=== PATIENT | female | born 2000 | race Caucasian/White ===

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

== ENCOUNTER 2020-02-21 17:31 | Emergency (ER) | payer MEDICAID, SELFPAY ==
[2020-02-21 17:43] VITALS: BP 114/76; PULSE 74; RESP 20; TEMP 36.8; O2SAT 99; BMI 29.2
--- NOTE | 2020-02-21 17:51 | HMH.EDUTC ---
[facility] [place] Dis[place] Clinical Impression: Otitis media Qualifiers: Otitis media type: suppurative Chronicity: acute Laterality: right Recurrence: non-recurrent Spontaneous tympanic membrane rupture: without spontaneous rupture Qualified Code(s): H66.001 - Acute suppurative otitis media without spontaneous rupture of ear drum, right ear Disposition: Home, Self-Care Condition on Discharge: Good Instructions: Middle Ear Infection Additional Instructions: Start antibiotic as soon as possible and be sure to take as ordered for full length of time even though he should start feeling better in 24-48 hours. Tylenol or Motrin as needed for pain or fever Encourage fluids, water, Gatorade, Powerade, Pedialyte if /toddler/child Warm compresses often helps when placed over ear Return immediately for new or worsening symptoms no noticeable improvement in 48-72 hours and in 10-14 days to ensure the ears are return to baseline. Follow-up with primary care Prescriptions: Amoxicillin [Amoxicillin 500mg Cap] 500 mg PO BID 10 Days #20 cap Prescription Printed Referrals: Astrid Munoz [Primary Care Provider] - Time of Disposition: 17:57 Medical Decision Making - Cecil Inquiry Pt receiving controlled substance: No Vital Signs: 02/21/20 17:43 Temperature 98.2 F Temperature Source Oral Pulse Rate [Left Brachial] 74 Respiratory Rate 20 Blood Pressure [Left Arm] 114/76 Blood Pressure Mean [Left Arm] 88 Blood Pressure Source [Left Arm] Automatic Cuff Blood Pressure Position [Left Arm] Sitting 02 Sat by Pulse Oximetry 99 Oxygen Delivery Method Room Air [facility] [place] HPI - General Chief complaint: Ear Stated complaint: R ear stopped up/fluid Time Seen by Provider: 02/21/20 17:52 Mode of Arrival: Ambulatory Source of Information: Patient Limitations: No Limitations Description of Symptoms (Recalled from Triage Doc. by RN): PATIENT C/O PAIN AND DECREASED HEARING TO RIGHT EAR X 1 WEEK HEENT Symptoms (Recalled from RN notes): Yes Resp Symptoms (Recalled from RN notes): No Skin Symptoms (Recalled from RN notes): No MS Symptoms (Recalled from RN notes): No Functional Status (Recalled from RN notes): WNL - History of Present Illness Provider Complaint: 20 yr old female presents for rt ear pain for 1 week - Related Data Home Medications Medication Instructions Recorded Confirmed Sulfamethoxazole/Trimethoprim 1 each PO BID 03/24/19 03/24/19 [Bactrim DS tablet] Previous Rx's Medication Instructions Recorded Ciprofloxacin HCl [Ciprofloxacin 500 mg PO BID #14 tab 03/24/19 500mg Tab] Azithromycin [Z-Qamar 250mg Tab*] 250 mg PO UD DOSE PK #6 tab 07/02/19 Brompheniramine/Pseudoephed/Dm 5 - 10 ml PO Q46H PRN #150 ml 07/02/19 [Bromfed Dm Cough Syrup] Fluticasone Propionate [Flonase 1 - 2 spr NS DAILY #1 bottle 07/02/19 50mcg nasal spray 16gm] methylPREDNISolone [Medrol 4mg 4 mg PO DIRECTED #21 tab 07/02/19 tab] Amoxicillin [Amoxicillin 500mg 500 mg PO BID 10 Days #20 cap 02/21/20 Cap] Allergies Allergy/AdvReac Type Severity Reaction Status Date / Time No Known Allergies Allergy Verified 09/23/17 19:50 - Worker's Comp Is this a Worker's Comp case?: No [facility] History - Hepatitis A Screen Drug use history?: No High risk sexual behaviors?: No History of sexually transmitted infection?: No Currently employed?: No Childcare worker?: No Do you have indoor plumbing?: Yes Do you have electricity?: Yes Attestation statement:: This patient has been screened for Hepatitis A risk factors. I have reviewed the patient's past medical history: Yes Medical History: Denies:: Cancer, Diabetes Mellitus Type 1, Diabetes Mellitus Type 2, MRSA Other Surgeries: Yes: No Previous Surgery Amputation: No Fractures: No - Social History Smoking Status: Never smoker Alcohol Intake: never Occupational Status: other Housing: house ROS Obtained: Yes Systems reviewed as appropriate & no additional complaint
[2020-02-21 17:59] VITALS: BP 114/76; PULSE 74; RESP 20; TEMP 36.8; O2SAT 99
== END 2020-02-21 18:00 | disposition home or self-care (01) ==
PROVIDERS: Emergency Provider Nurse Practitioner Family; PCP Family Medicine
DX: H66.001 Acute suppurative otitis media without spontaneous rupture of ear drum, right ear (principal)
CPT/HCPCS: 99201

== ENCOUNTER 2020-04-26 12:19 | Emergency (ER) | payer MEDICAID, SELFPAY ==
[2020-04-26 12:33] VITALS: BP 110/71; PULSE 70; RESP 19; TEMP 36.6; O2SAT 98; BMI 25.7
--- NOTE | 2020-04-26 12:59 | HMH.EDUTC ---
[facility] [place] Impression: Sinusitis Qualifiers: Sinusitis location: unspecified location Chronicity: acute Recurrence: non-recurrent Qualified Code(s): J01.90 - Acute sinusitis, unspecified Disposition: Home, Self-Care Condition on Discharge: Good Instructions: Sinusitis, DI for Sinusitis Additional Instructions: Drink plenty of fluids. Take tylenol or ibuprofen for pain or fever. Take the medications as directed. Follow up with your regular doctor. GO TO THE ER FOR ANY WORSENING SYMPTOMS Prescriptions: Brompheniramine/Pseudoephed/Dm [Bromfed Dm Cough Syrup] 5 ml PO Q6HP PRN #240 syrup PRN Reason: Cough Transmission Status: Pending to [facility] predniSONE [Deltasone 10mg tablet] 10 mg PO BID 3 Days #6 tab Transmission Status: Pending to [facility] Azithromycin [Z-Qamar 250mg Tab*] 250 mg PO UD DOSE PK #6 tab Transmission Status: Pending to [facility] Referrals: Zneaida Kearns PA [Primary Care Provider] - Forms: Work/School Release Time of Disposition: 13:09 Medical Decision Making - Medical Records Medical records reviewed: No: I reviewed the patient's medical records. - Cecil Inquiry Pt receiving controlled substance: No Vital Signs: 04/26/20 12:33 Temperature 97.8 F Temperature Source Oral Pulse Rate [Right Brachial] 70 Respiratory Rate 19 Blood Pressure [Right Arm] 110/71 Blood Pressure Mean [Right Arm] 84 Blood Pressure Source [Right Arm] Automatic Cuff Blood Pressure Position [Right Arm] Sitting 02 Sat by Pulse Oximetry 98 Oxygen Delivery Method Room Air [facility] [place] - General Stated complaint: congestion Time Seen by Provider: 04/26/20 13:00 Mode of Arrival: Ambulatory Source of Information: Patient Limitations: No Limitations Description of Symptoms (Recalled from Triage Doc. by RN): PATIENT C/O SINUS AND ALLERGY PROBLEMS X 2 WEEKS HEENT Symptoms (Recalled from RN notes): Yes Resp Symptoms (Recalled from RN notes): No Skin Symptoms (Recalled from RN notes): No MS Symptoms (Recalled from RN notes): No Functional Status (Recalled from RN notes): WNL - History of Present Illness Provider Complaint: She c/o sinus congestion, sinus pressure, mild sore throat and an cough thats worse at night for the past 2 weeks. She denies any worries about covid exposure even though she works at [employer]. She refuses a covid test. - Related Data Previous Rx's Medication Instructions Recorded Azithromycin [Z-Qamar 250mg Tab*] 250 mg PO UD DOSE PK #6 tab 04/26/20 Brompheniramine/Pseudoephed/Dm 5 ml PO Q6HP PRN #240 syrup 04/26/20 [Bromfed Dm Cough Syrup] predniSONE [Deltasone 10mg tablet] 10 mg PO BID 3 Days #6 tab 04/26/20 Allergies Allergy/AdvReac Type Severity Reaction Status Date / Time No Known Allergies Allergy Verified 09/23/17 19:50 - Worker's Comp Is this a Worker's Comp case?: No [facility] History - Hepatitis A Screen Drug use history?: No High risk sexual behaviors?: No History of sexually transmitted infection?: No Currently employed?: No Childcare worker?: No Do you have indoor plumbing?: Yes Do you have electricity?: Yes Attestation statement:: This patient has been screened for Hepatitis A risk factors. I have reviewed the patient's past medical history: Yes Medical History: Denies:: Cancer, Diabetes Mellitus Type 1, Diabetes Mellitus Type 2, MRSA Other Surgeries: Yes: No Previous Surgery Amputation: No Fractures: No - Social History Smoking Status: Never smoker Alcohol Intake: never Occupational Status: other Housing: house ROS Obtained: Yes All systems reviewed & no additional complaints - Constitutional Constitutional: Reports chills, Denies fever(s), Reports poor appetite, Reports malaise - Eyes Eyes: Denies eye discharge - ENT Ears, Nose, Mouth, and Throat: Reports as per HPI Physical Exam - General General appearance: alert, in no apparent distress - Head Head exam: atraumatic, n
[2020-04-26 13:14] VITALS: BP 110/71; PULSE 70; RESP 19; TEMP 36.6; O2SAT 98
== END 2020-04-26 13:16 | disposition home or self-care (01) ==
PROVIDERS: Emergency Provider Nurse Practitioner Family; PCP Nurse Practitioner Family
DX: J01.90 Acute sinusitis, unspecified (principal)
CPT/HCPCS: 99201

== ENCOUNTER 2020-08-04 18:40 | Emergency (ER) | payer MEDICAID, SELFPAY ==
[2020-08-04 18:55] VITALS: BP 131/84; PULSE 83; RESP 20; TEMP 37.1; O2SAT 99; BMI 27.8
--- NOTE | 2020-08-04 19:18 | HMH.EDUTC ---
[facility] [place]: Nausea Disposition: Home, Self-Care Condition on Discharge: Good Instructions: DI for Fatigue, DI for Nausea -- Adult, Ondansetron Additional Instructions: Take medication as prescribed Keep a food diary and see if you have discomfort after eating spicy or greasy food Call your Family Doctor tomorrow to make appointment for further evaluation and examination Return if needed Straight to ER if any life threatening symptoms, worsening of abdominal pain ETc Rest and plenty of fluids Prescriptions: Ondansetron [Zofran 4mg ODT] 4 mg PO TIDP PRN #12 tab PRN Reason: Nausea Prescription Printed Referrals: Bryan Munoz MD [Primary Care Provider] - As needed Forms: Work/School Release Time of Disposition: 19:39 Medical Decision Making - Cecil Inquiry Pt receiving controlled substance: No Cecil was queried for this patient: No Vital Signs: 08/04/20 18:55 08/04/20 19:43 Temperature 98.8 F 98.8 F Temperature Source Oral Pulse Rate 83 Pulse Rate [Right Brachial] 83 Respiratory Rate 20 20 Blood Pressure 131/84 Blood Pressure [Right Arm] 131/84 Blood Pressure Mean [Right Arm] 99 Blood Pressure Source [Right Arm] Automatic Cuff Blood Pressure Position [Right Arm] Sitting 02 Sat by Pulse Oximetry 99 Oxygen Delivery Method Room Air - Lab Data Lab results reviewed: Yes: I reviewed the patient's lab results. Lab Results 08/04/20 19:26: Strep Scn Rapid Clinic Negative 08/04/20 19:26: Urine Color Yellow, Urine Appearance Clear, Urine pH 8.5, Ur Specific [place] 1.020, Urine Protein 1+, Urine Glucose (UA) Negative, Urine Ketones Negative, Urine Blood Negative, Urine Nitrate Negative, Urine Bilirubin Negative, Urine Urobilinogen 0.2, Ur Leukocyte Esterase Negative, Tst Clinic Negative Orders (Tests/Meds): ORDERS Category Date Time Status Strep Screen Confirmation Stat Micro 08/04/20 19:26 Received Medical Decision Narrative: Discussed with patient that if she is having abdominal pain recommended that she be transferred to the ED for further work up and evaluation Patient states that she is not having pain at this time and came in to get checked for Strep throat, and have her urine checked and get a Work note States that she was tested for COVID earlier today and it was negative States that she will follow up with her PCP and OBGYN if pain returns or worsens and return to the ED if needed Patient states that she talked with her mother and mother wanted her to go to the ED for further work up and xrays/ct but she is not having any pain and she will follow up with her family doctor and OBGYN for further testing and evaluation [facility] [place] - General Stated complaint: headache, fatigue Time Seen by Provider: 08/04/20 19:18 Mode of Arrival: Ambulatory Source of Information: Patient Limitations: No Limitations Description of Symptoms (Recalled from Triage Doc. by RN): PATIENT C/O PAIN TO RLQ THAT OCCASIONALLY RADIATES TO UNDER BREAST X1 WEEK. SHE ALSO C/O NAUSEA, HEADACHES AND FATIGUE HEENT Symptoms (Recalled from RN notes): No Resp Symptoms (Recalled from RN notes): No Skin Symptoms (Recalled from RN notes): No MS Symptoms (Recalled from RN notes): No Functional Status (Recalled from RN notes): WNL - History of Present Illness Provider Complaint: Patient states that last week she had some pain in right lower quad area that felt like at times it went into her stomach and under right breast mid abdomen area States that she had appointment with OBGYN but started her period so she had to reschedule States that that pain is gone and she is not having any pain at this time and that is not why she is here States that today she was having a scratchy throat, headache nausea and fatigue States that she had a COVID test earlier today and it was negative States that she wanted to get checked for Strep throat and have her urine checked - Related Data Previous Rx's
[2020-08-04 19:43] VITALS: BP 131/84; PULSE 83; RESP 20; TEMP 37.1; O2SAT 99
[2020-08-04 20:49] LABS: Apearance,Urine Clear (Clear); Color,Urine Yellow (Yellow)
[2020-08-04 20:50] LABS: Bilirubin,Urine Negative (Negative); Blood, Urine Negative (Negative); Glucose,Urine (UA) Negative (Negative); Ketones,Urine Negative (Negative); PH,Urine 8.5 (5.0-8.5); Protein,Urine 1+ (Negative); UTC Leukocyte Esterase,Urine Negative (Negative); UTC Nitrate,Urine Negative (Negative); UTC Pregnancy Test, Urine Negative (Negative); Urobilinogen,Urine 0.2 EU/dl (0.2)
[2020-08-04 20:51] LABS: UTC Strep Screen (Rapid) Negative (Negative)
== END 2020-08-04 19:45 | disposition home or self-care (01) ==
PROVIDERS: Emergency Provider Nurse Practitioner; PCP Family Medicine
DX: R11.0 Nausea (principal); R10.31 Right lower quadrant pain
CPT/HCPCS: 81003; 81025; 87880; 99202; G0463

== ENCOUNTER → 2020-11-03 14:13 | Outpatient (CLI) | payer MEDICAID, SELFPAY ==
[2020-11-03 14:55] LABS: Basophils # 0.1 K/mm3 (0-0.2); Basophils % 0.6 % (0.1-2.0); Eosinophils # 0.2 K/mm3 (0.0-0.4); Eosinophils % 2.4 % (0.1-12.0); Hematocrit 47.8 % (37.0-47.0); Hemoglobin 15.8 g/dL (12.2-16.2); Lymphocytes # 2.5 K/mm3 (0.7-4.5); Mean Corpuscular HGB Conc 33.1 g/dL (31.8-35.4); Mean Corpuscular Hemoglobin 30.5 pg (27.0-31.2); Mean Platelet Volume 7.5 fl (7.4-10.4); Monocytes # 0.7 K/mm3 (0.1-1.0); Monocytes % 7.7 % (1.7-9.3); Neutrophils # 5.7 K/mm3 (1.8-7.8); Neutrophils % 62.3 % (37.0-80.0); Platelet Count 336 K/mm3 (142-424); Red Blood Count 5.19 M/mm3 (4.20-5.40); White Blood Count 9.2 K/mm3 (4.8-10.8)
[2020-11-03 15:28] LABS: Chloride 104 mmol/L (98-107); Sodium 139 mmol/L (136-145)
[2020-11-03 15:29] LABS: Potassium 4.3 mmoL/L (3.5-5.1)
[2020-11-03 15:31] LABS: Alanine Aminotransferase 20 U/L (12-78); Alkaline Phosphatase 92 U/L (38-126); Anion Gap 13.3 mEq/L (5-15); Aspartate Amino Transferase 24 U/L (14-36); Bilirubin,Total 0.7 mg/dl (0.2-1.3); Blood Urea Nitrogen 12 mg/dl (7-17); Carbon Dioxide 26 mmol/L (22.0-30.0); Cholesterol 202 mg/dl (140-200); Estimated Glomerular Filt Rate 125 ml/min (>60); GFR (African American) 151 ML/MIN (>60); Triglycerides 152 mg/dl (30-150); VLDL Cholesterol 30 mg/dL (0-40)
[2020-11-03 15:32] LABS: Albumin Level 4.7 g/dl (3.5-5.0); Albumin/Globulin Ratio 1.8 (1.1-1.8); Calcium 9.5 mg/dl (8.4-10.2); Chol/HDL Ratio 4.3 (1-3.5); Globulin 2.6 g/dL (1.3-3.2); Glucose 83 mg/dl (74-100); HDL Cholesterol 47 mg/dl (40-60); Total Protein,Serum 7.3 g/dl (6.3-8.2)
[2020-11-03 15:44] LABS: Direct LDL Cholesterol 123.58 mg/dL (100-129)
[2020-11-03 15:50] LABS: Free T4 (Free Thyroxine) 1.08 ng/dl (0.78-2.19)
[2020-11-03 15:56] LABS: 25-OH Vitamin D, Total 48.7 ng/mL (30-100)
[2020-11-03 16:04] LABS: Thyroid Stimulating Hormone 1.11 uIU/mL (0.465-4.68)
[2020-11-03 17:05] LABS: Vitamin B12 298 pg/mL (239-931)
== END ==
PROVIDERS: Visit Provider Physician Assistant
DX: R53.83 Other fatigue (principal); Z68.30 Body mass index [BMI] 30.0-30.9, adult
CPT/HCPCS: 36415; 80053; 80061; 82306; 82607; 84439; 84443; 85025

== ENCOUNTER 2021-07-25 13:39 | Emergency (ER) | payer MEDICAID, SELFPAY ==
[2021-07-25 15:40] VITALS: BP 110/72; PULSE 58; RESP 18; TEMP 36.6; O2SAT 98; BMI 29.2
--- NOTE | 2021-07-25 16:24 | HMH.EDUTC ---
[facility] [place] Disposition Clinical Impression: Burning with urination Disposition: Home, Self-Care Condition on Discharge: Good Additional Instructions: Make sure that you are drinking plenty of water and avoid soft drinks Follow up with Family Doctor if symptoms persist or worse Return if needed Straight to ER if any life threatening symptoms Referrals: Provider,Referral, [Primary Care Provider] - As needed Time of Disposition: 16:35 Medical Decision Making - Cecil Inquiry Pt receiving controlled substance: No Cecil was queried for this patient: No Vital Signs: 07/25/21 15:40 Temperature 97.8 F Temperature Source Oral Pulse Rate [Right Brachial] 58 L Respiratory Rate 18 Blood Pressure [Right Arm] 110/72 Blood Pressure Mean [Right Arm] 84 Blood Pressure Source [Right Arm] Automatic Cuff Blood Pressure Position [Right Arm] Sitting 02 Sat by Pulse Oximetry 98 Oxygen Delivery Method Room Air - Lab Data Lab results reviewed: Yes: I reviewed the patient's lab results. [facility] [place] HPI - General Stated complaint: possible uti Time Seen by Provider: 07/25/21 16:24 Mode of Arrival: Ambulatory Source of Information: Patient Limitations: No Limitations Description of Symptoms (Recalled from Triage Doc. by RN): PATIENT C/O BURNING WITH URINATION X 1 WEEK HEENT Symptoms (Recalled from RN notes): No Resp Symptoms (Recalled from RN notes): No Skin Symptoms (Recalled from RN notes): No MS Symptoms (Recalled from RN notes): No Functional Status (Recalled from RN notes): WNL - History of Present Illness Provider Complaint: Patient states that she has been having some burning when she urinates States that she was worried that she may have a UTI and wanted to get checked before it got too bad - Related Data Allergies Allergy/AdvReac Type Severity Reaction Status Date / Time No Known Allergies Allergy Verified 11/03/20 13:36 - Worker's Comp Is this a Worker's Comp case?: No [facility] History - Hepatitis A Screen Drug use history?: No High risk sexual behaviors?: No History of sexually transmitted infection?: No Currently employed?: No Childcare worker?: No Do you have indoor plumbing?: Yes Do you have electricity?: Yes Attestation statement:: This patient has been screened for Hepatitis A risk factors. I have reviewed the patient's past medical history: Yes Medical History: Denies:: Cancer, Diabetes Mellitus Type 1, Diabetes Mellitus Type 2, MRSA Other Surgeries: Yes: No Previous Surgery, Other Amputation: No Fractures: No Comment: [place] teeth - Social History Smoking Status: Light tobacco smoker Tobacco Type: e-cigarettes Alcohol Intake: current Alcohol Intake Frequency:: holidays/special occasions only Substance Use Type: denies use Occupational Status: employed Housing: house Family Hx:: No significant family history ROS Obtained: Yes All systems reviewed & no additional complaints, Yes Systems reviewed as appropriate & no additional complaints - Constitutional Constitutional: Reports system reviewed and no additional complaints, except as docu, Denies body ache, Denies chills, Denies fever(s) - ENT Ears, Nose, Mouth, and Throat: Reports system reviewed and no additional complaints, except as docu - Cardiovascular Cardiovascular: Reports system reviewed and no additional complaints, except as docu - Respiratory Respiratory: Reports system reviewed and no additional complaints, except as docu - Gastrointestinal Gastrointestingal: Reports: system reviewed and no additional complaints, except as docu - Genitourinary Female Genitourinary: Reports system reviewed and no additional complaints, except as docu, Denies genital itching, Denies urinary frequency, Denies urinary urgency, Denies vaginal discharge, Denies vaginal odor, Denies vaginal itching, Reports other (burning on and off with urination ) Physical Exam - General General appearance: alert, in no apparent distress - Respiratory
[2021-07-25 16:36] VITALS: BP 110/72; PULSE 58; RESP 18; TEMP 36.6; O2SAT 98
[2021-07-25 19:34] LABS: Apearance,Urine Turbid (Clear); Bilirubin,Urine Negative (Negative); Blood, Urine Negative (Negative); Color,Urine Yellow (Yellow); Glucose,Urine (UA) Negative (Negative); Ketones,Urine Negative (Negative); PH,Urine 7.5 (5.0-8.5); Protein,Urine Negative (Negative); Specific Gravity, Urine 1.025 (1.005-1.030); UTC Leukocyte Esterase,Urine Negative (Negative); UTC Nitrate,Urine Negative (Negative); Urobilinogen,Urine 1 EU/dl (0.2)
[2021-07-25 19:36] LABS: UTC Pregnancy Test, Urine Negative (Negative)
== END 2021-07-25 16:41 | disposition home or self-care (01) ==
PROVIDERS: Emergency Provider Nurse Practitioner
DX: R30.0 Dysuria (principal); F17.290 Nicotine dependence, other tobacco product, uncomplicated
CPT/HCPCS: 81003; 81025; 99202; G0463

== ENCOUNTER 2021-10-02 13:59 | Emergency (ER) | payer MEDICAID, SELFPAY ==
[2021-10-02 14:23] VITALS: BP 150/76; PULSE 102; RESP 16; TEMP 36.7; O2SAT 96; BMI 30.2
[2021-10-02 14:30] VITALS: BP 132/75; PULSE 88; O2SAT 98
[2021-10-02 14:35] VITALS: BP 132/75; PULSE 91; O2SAT 98
--- NOTE | 2021-10-02 14:38 | HMH.EDGENADL ---
ED Disposition Clinical Impression: Upper respiratory infection Qualifiers: URI type: unspecified viral URI Qualified Code(s): J06.9 - Acute upper respiratory infection, unspecified Disposition: Home, Self-Care Condition on Discharge: Good Instructions: DI for Acute Bronchitis Referrals: Shira Pool APRN [Primary Care Provider] - - Critical Care Critical Care Time: No Attestation: On 10/02/21, the high probability of a clinically significant, sudden or life threatening deterioration of the following system(s) required my full and direct attention, intervention and personal management. The time I documented below is in addition to time spent performing reported procedures but includes the following listed in this critical care notation. Medical Decision Making - Medical Records Medical records reviewed: Yes: I reviewed the patient's medical records. - Cecil Inquiry Pt receiving controlled substance: No Vital Signs: 10/02/21 14:23 10/02/21 14:35 Temperature 98.1 F Temperature Source Oral Pulse Rate [Left Radial] 102 H 91 H Respiratory Rate 16 Blood Pressure [Right Arm] 150/76 H 132/75 Blood Pressure Mean [Right Arm] 100 94 02 Sat by Pulse Oximetry 96 98 Oxygen Delivery Method Room Air Room Air - Lab Data Lab results reviewed: Yes: I reviewed the patient's lab results. Orders (Tests/Meds): ORDERS Category Date Time Status Rapid PCR Covid and Flu A/B Stat Lab 10/02/21 14:42 Received Medical Decision Narrative: Patient is a 21-year-old female presenting with a chief complaint of 2 days of viral upper respiratory symptoms. She was evaluated with COVID-19 swab and influenza swab. Frontal diagnosis includes, but is not limited to, COVID-19, influenza, nonspecific viral upper respiratory infection, asthma exacerbation, pneumonia, other. On initial exam, patient is hemodynamically stable and nontoxic-appearing. She is able to tolerate p.o. intake. She was given a prescription for Zofran in case she develops nausea and vomiting and advised she will receive a call back regarding her results today. Patient was discharged in a stable condition. General Adult HPI - General Chief complaint: Upper Respiratory Infection Stated complaint: body aches, chills, cough Time Seen by Provider: 10/02/21 14:35 Mode of Arrival: Ambulatory Limitations: No Limitations Description of Symptoms (Recalled from ER Triage Doc. by RN): pt to ed c/o fever, chills and body aches since last night. pt states she does not know of any recent exposure to sickness. - History of Present Illness HPI narrative: Ria is a 21yo female without significant medical history presenting with a chief complaint of congestion, dry cough, fever and malaise for the past 2 days. Patient is not vaccinated for Covid 19. She reports that her sister's children have been sick with similar symptoms. Patient denies shortness of breath, chest pain, abdominal pain, nausea, vomiting, diarrhea, dysuria. She does endorse recent p.o. intake. - Related Data Previous Rx's Medication Instructions Recorded levonorgestrel-ethinyl estradiol 1 tab PO DAILY #84 tab 08/28/21 0.1 mg-20 mcg tablet azithromycin 250 mg tablet 250 mg PO DAILY 6 Days #6 tab 09/01/21 Allergies Allergy/AdvReac Type Severity Reaction Status Date / Time No Known Allergies Allergy Verified 08/28/21 15:17 [facility] History - Hepatitis A Screen Drug use history?: No High risk sexual behaviors?: No History of sexually transmitted infection?: No Currently employed?: No Childcare worker?: No Do you have indoor plumbing?: Yes Do you have electricity?: Yes Attestation statement:: This patient has been screened for Hepatitis A risk factors. Medical History: Denies:: Cancer, Diabetes Mellitus Type 1, Diabetes Mellitus Type 2, MRSA Other Surgeries: Yes: No Previous Surgery, Other Amputation: No Fractures: No Comment: [place] teeth - Social History Smoking Statu
[2021-10-02 14:49] LABS: Coronavirus 19, PCR Not Detected (NotDetected); Influenza B, PCR Not Detected (NotDetected)
[2021-10-02 15:00] VITALS: BP 139/115; PULSE 94; O2SAT 97
[2021-10-02 15:30] VITALS: BP 141/77; PULSE 87; O2SAT 99
[2021-10-02 15:32] VITALS: BP 141/77; PULSE 87; RESP 16; TEMP 36.7; O2SAT 99
[2021-10-02 16:12] LABS: Influenza A, PCR Detected (NotDetected)
== END 2021-10-02 15:33 | disposition home or self-care (01) ==
LOC: UTC 14:04 → ER 14:12
PROVIDERS: Emergency Medicine; Emergency Provider Nurse Practitioner Family; PCP Nurse Practitioner Family
DX: J06.9 Acute upper respiratory infection, unspecified (principal); F17.290 Nicotine dependence, other tobacco product, uncomplicated
CPT/HCPCS: 99283; C9803; U0003; U0005

== ENCOUNTER → 2021-11-27 11:40 | Outpatient (CLI) | payer MEDICAID, SELFPAY ==
[2021-11-29 23:23] LABS: Neisseria gonorrhoeae, NAA Negative (Negative)
== END ==
PROVIDERS: Visit Provider Nurse Practitioner Obstetrics & Gynecology
DX: Z72.51 High risk heterosexual behavior (principal)
CPT/HCPCS: 87491; 87591

== ENCOUNTER → 2023-01-08 19:00 | Outpatient (CLI) | payer MEDICAID, SELFPAY ==
[2023-01-08 20:08] LABS: Basophils % 0.3 % (0.1-2.0); Eosinophils # 0.1 K/mm3 (0.0-0.4); Eosinophils % 1.7 % (0.1-12.0); Hematocrit 44.3 % (37.0-47.0); Hemoglobin 14.7 g/dL (12.2-16.2); Lymphocytes # 1.9 K/mm3 (0.7-4.5); Lymphocytes % 28.9 % (10-50); Mean Corpuscular HGB Conc 33.3 g/dL (31.8-35.4); Mean Corpuscular Hemoglobin 29.6 pg (27.0-31.2); Mean Platelet Volume 8.8 fl (7.4-10.4); Monocytes # 0.5 K/mm3 (0.1-1.0); Monocytes % 8.4 % (1.7-9.3); Neutrophils # 3.9 K/mm3 (1.8-7.8); Neutrophils % 60.6 % (37.0-80.0); Platelet Count 347 K/mm3 (142-424); Red Blood Count 4.97 M/mm3 (4.20-5.40); Red Cell Distribution Width 13.6 % (11.5-17.5); White Blood Count 6.4 K/mm3 (4.8-10.8)
[2023-01-08 20:30] LABS: Alanine Aminotransferase 35 U/L (12-78); Albumin Level 4.3 g/dl (3.5-5.0); Albumin/Globulin Ratio 1.6 (1.1-1.8); Alkaline Phosphatase 80 U/L (38-126); Aspartate Amino Transferase 38 U/L (14-36); Bilirubin,Total 0.8 mg/dl (0.2-1.3); Blood Urea Nitrogen 8 mg/dl (7-17); Calcium 9.2 mg/dl (8.4-10.2); Carbon Dioxide 26 mmol/L (22.0-30.0); Chloride 102 mmol/L (98-107); Chol/HDL Ratio 5.3 (1-3.5); Cholesterol 253 mg/dl (140-200); Estimated Glomerular Filt Rate 123 ml/min (>60); GFR (African American) 149 ML/MIN (>60); Globulin 2.7 g/dL (1.3-3.2); Glucose 81 mg/dl (74-100); HDL Cholesterol 48 mg/dl (40-60); Sodium 141 mmol/L (136-145); Triglycerides 158 mg/dl (30-150); VLDL Cholesterol 32 mg/dL (0-40)
[2023-01-08 20:41] LABS: Direct LDL Cholesterol 156.83 mg/dL (100-129)
[2023-01-08 20:48] LABS: 25-OH Vitamin D, Total 31.9 ng/mL (30-100)
[2023-01-08 21:03] LABS: Thyroid Stimulating Hormone 1.59 uIU/mL (0.465-4.68)
== END ==
PROVIDERS: PCP Physician Assistant; Visit Provider Physician Assistant
DX: Z00.00 Encounter for general adult medical examination without abnormal findings (principal); Z83.3 Family history of diabetes mellitus; E66.9 Obesity, unspecified; Z68.33 Body mass index [BMI] 33.0-33.9, adult
CPT/HCPCS: 80053; 80061; 82306; 84443; 85025

== ENCOUNTER 2023-06-16 12:02 | Emergency (ER) | payer MEDICAID, SELFPAY ==
[2023-06-16 14:16] VITALS: BP 0/0; PULSE 0; RESP 0; TEMP -17.7; TEMP 0
== END 2023-06-16 14:17 | disposition left against medical advice (07) ==
PROVIDERS: Emergency Provider Physician Assistant; PCP Physician Assistant
DX: Z53.21 Procedure and treatment not carried out due to patient leaving prior to being seen by health care provider (principal)

== ENCOUNTER 2024-07-29 17:18 | Emergency (ER) | payer MEDICAID, SELFPAY ==
[2024-07-29 17:30] VITALS: BP 109/74; PULSE 71; RESP 19; TEMP 36.8; O2SAT 98; BMI 31.6
[2024-07-29 17:37] LABS: Apearance,Urine Cloudy (Clear); Bilirubin,Urine Negative (Negative); Blood, Urine Negative (Negative); Color,Urine Dark Yellow (Yellow); Glucose,Urine (UA) Negative (Negative); Ketones,Urine TRACE (Negative); Protein,Urine Negative (Negative); Urobilinogen,Urine 0.2 EU/dl (0.2)
[2024-07-29 17:38] LABS: UTC Leukocyte Esterase,Urine Trace (Negative); UTC Nitrate,Urine Negative (Negative)
--- NOTE | 2024-07-29 18:04 | ED_ITS ---
Discharge Plan Disposition Patient Disposition: Home, Self-Care Condition: Good Prescriptions Prescriptions: New nitrofurantoin monohyd/m-cryst [Macrobid] 100 mg capsule 100 mg PO Q12H 7 Days Qty: 14 0RF Rx Instructions: must administer with a meal/food phenazopyridine [Pyridium] 200 mg tablet 200 mg PO Q8H 2 Days Qty: 6 0RF Referrals Follow up/Referrals: Fernanda Lynn PA [Primary Care Provider] - See instructions Activity Restrictions/Add. Instructions Additional Instructions/Restrictions: *Increase fluids. Water not Soda or Tea *Start antibiotic immediately and be sure to take as ordered for the FULL length of time although you should start to see improvement over the next 48 hours *Pyridium as needed Remember this medication will turn your urine . This is normal but it will stain what ever it gets on *You should not use Pyridium for more than 48 hours. If so , follow up with your primary physician to review urine culture and ensure that antibiotic is adequate for infection *Be SURE to follow up anytime for new or worsening symptoms with your family doctor. AND in 48 hours for urine culture results with your family doctor, if you do not have a doctor then you may call back to the [facility] for urine culture results and further treatment. We do recommend that you choose and establish care with a Primary Care Physician. ?AND follow up with them ?in 10-14 days to repeat UA to ensure infection is resolved and blood no longer present *Be sure to let your PCP know that we sent urine cultures from the [facility] so they can follow up to ensure that you area the on the correct antibiotic Call your doctor office and make appointment for 48 hours (2 days from today) ?to follow up and get the results of your urine culture and further treatment Clinical Impressions Clinical Impression: UTI (urinary tract infection) Instructions Patient Instructions: DI for Urinary Tract Infection (UTI), Nitrofurantoin, Phenazopyridine Print Language Print Language: Burundian Discharge ED Provider: Chanda Croft [facility] [place] HPI General Stated complaint: poss UTI Mode of Arrival: Ambulatory Source of Information: Patient Limitations: No Limitations Time Seen by Provider: 07/29/24 18:04 Description of Symptoms (Recalled from Triage Doc. by RN): PATIENT C/O IRRITATION WITH URINATION X 6 DAYS HEENT Symptoms (Recalled from RN notes): No Resp Symptoms (Recalled from RN notes): No Skin Symptoms (Recalled from RN notes): No MS Symptoms (Recalled from RN notes): No Functional Status (Recalled from RN notes): WNL History of Present Illness Provider Complaint: Patient states that she has been having discomfort with urination for about a week that she thought would get better but hasnt so today she came in to get checked Denies fever, denies abdominal pain and denies N/V Related Data Previous Rx's ?Medication ?Instructions ?Recorded nitrofurantoin 100 mg PO Q12H 7 days #14 caps 07/29/24 monohydrate/macrocrystals 100 mg capsule (Macrobid) phenazopyridine 200 mg tablet 200 mg PO Q8H pain 2 days #6 tabs 07/29/24 (Pyridium) Allergies Allergy/AdvReac Type Severity Reaction Status Date / Time No Known Allergies Allergy Verified 11/25/23 14:08 Worker's Comp Is this a Worker's Comp case?: No [facility] Disclaimer: The information contained in this section may have been updated after the patient was seen, as this information can be updated by other users. Medical History (Updated 07/29/24 @ 18:15 by Chanda Croft APRN) Patient left without being seen Family history of diabetes mellitus Surgical History No history of previous surgery Family History Father Diabetes Social History Smoking Status: Light tobacco smoker tobacco type: e-cigarettes alcohol intake: never substance use type: denies use current occupational status: student Travel in the last 8 weeks: None household members: none housing: house Have you lived/traveled outside US in past 30 days?: No Contact w/someone who lives/traveled outside US past 30 days?: No Exposure to someone with infectious disease in past 14 days?: No Do you have a fever (greater than 100.4 F or 38 C)?: No Have you tested positive for COVID-19: No Exposed to someone with COVID-19 in past 14 days?: No Do you have a sore throat?: No Do you have a cough?: No Do you have any weakness?: No Do you have any diarrhea?: No Are you experiencing any unusual bleeding?: No Do you have any muscle aches/pain?: No Do you have any abdominal pain?: No Are you experiencing loss of taste or smell?: No ROS Obtained: Yes All systems reviewed & no additional complaints except as documented and Yes Systems reviewed as appropriate & no additional complaints except as documented Constitutional Constitutional: Reports system reviewed and no additional complaints, except as documented, Reports as per HPI, Denies body ache, Denies chills, Denies fever(s) and Denies headache(s) ENT Ears, Nose, Mouth, and Throat: Reports system reviewed and no additional complaints, except as documented, Reports as per HPI and Denies headache(s) Cardiovascular Cardiovascular: Reports system reviewed and no additional complaints, except as documented and Reports as per HPI Respiratory Respiratory: Reports system reviewed and no additional complaints, except as documented and Reports as per HPI Gastrointestinal Gastrointestingal: Reports system reviewed and no additional complaints, except as documented and as per HPI; Denies abdominal pain, nausea or vomiting Genitourinary Female Genitourinary: Reports system reviewed and no additional complaints, except as documented, Reports as per HPI, Reports dysuria, Reports urinary frequency and Reports urinary urgency Musculoskeletal Musculoskeletal: Reports system reviewed and no additional complaints, except as documented and Reports as per HPI Integumentary/Breasts Skin/Breast: Reports system reviewed and no additional complaints, except as documented and Reports as per HPI Neurologic Neurologic: Denies headache(s) Physical Exam General General appearance: alert and in no apparent distress ENT ENT exam: Present normal exam, normal oropharynx, mucous membranes moist and TM's normal bilaterally Respiratory Respiratory exam: Present normal lung sounds bilaterally; Absent respiratory distress or wheezes Cardiovascular Cardiovascular exam: Present regular rate, normal rhythm and normal heart sounds Abdominal Exam Abdominal exam: Present soft and normal bowel sounds; Absent distention or tenderness Neurological Exam Neurological exam: Present alert, oriented X3 and normal gait Medical Decision Making Medical Records Screening: Per USPSTF and CDC recommendations, given the prevalence of disease in our region, it is our hospital?s policy to screen for HIV and viral Hepatitis for all patients aged 18 and over and those with ongoing risk factors. Cecil Inquiry Pt receiving controlled substance: No Cecil was queried for this patient: No Vital Signs: 07/29/24 17:30 Temperature 98.3 F Temperature Source Oral Pulse Rate [Left Brachial] 71 Respiratory Rate 19 Blood Pressure [Left Arm] 109/74 L Blood Pressure Mean [Left Arm] 85 Blood Pressure Source [Left Arm] Automatic Cuff Blood Pressure Position [Left Arm] Sitting 02 Sat by Pulse Oximetry 98 Oxygen Delivery Method Room Air Lab Data Lab results reviewed: Yes I reviewed the patient's lab results. Lab Results 07/29/24 17:27: Urine Color Dark yellow, Urine Appearance Cloudy, Urine pH 6.0, Ur Specific [place] 1.030, Urine Protein Negative, Urine Glucose (UA) Negative, Urine Ketones Trace, Urine Blood Negative, Urine Nitrate Negative, Urine Bilirubin Negative, Urine Urobilinogen 0.2, Ur Leukocyte Esterase Trace Orders (Tests/Meds): ORDERS Category Date Time Status Urine Culture Stat Micro 07/29/24 17:30 Received
[2024-07-29 18:16] VITALS: BP 109/74; PULSE 71; RESP 19; TEMP 36.8; O2SAT 98
--- NOTE | 2024-07-31 09:44 | PC.NURSE ---
REVIEWED URINE CULTURE WITH Parisa SNYDER APRN. ANTIBIOTIC CHANGED FROM MACROBID TO CIPRO PER Parisa SNYDER APRN. ATTEMPTED TO NOTIFY PATIENT WITH NO ANSWER. VOICEMAIL LEFT FOR PATIENT TO RETURN CALL AT THIS TIME
--- NOTE | 2024-07-31 09:56 | EXP.UTC ---
Discharge Plan Disposition Patient Disposition: Home, Self-Care Condition: Good Prescriptions Prescriptions: New nitrofurantoin monohyd/m-cryst [Macrobid] 100 mg capsule 100 mg PO Q12H 7 Days Qty: 14 0RF Rx Instructions: must administer with a meal/food phenazopyridine [Pyridium] 200 mg tablet 200 mg PO Q8H 2 Days Qty: 6 0RF ciprofloxacin HCl [Cipro] 500 mg tablet 500 mg PO BID 7 Days Qty: 14 0RF Referrals Follow up/Referrals: Fernanda Lynn PA [Primary Care Provider] - See instructions Activity Restrictions/Add. Instructions Additional Instructions/Restrictions: *Increase fluids. Water not Soda or Tea *Start antibiotic immediately and be sure to take as ordered for the FULL length of time although you should start to see improvement over the next 48 hours *Pyridium as needed Remember this medication will turn your urine . This is normal but it will stain what ever it gets on *You should not use Pyridium for more than 48 hours. If so , follow up with your primary physician to review urine culture and ensure that antibiotic is adequate for infection *Be SURE to follow up anytime for new or worsening symptoms with your family doctor. AND in 48 hours for urine culture results with your family doctor, if you do not have a doctor then you may call back to the [facility] for urine culture results and further treatment. We do recommend that you choose and establish care with a Primary Care Physician. ?AND follow up with them ?in 10-14 days to repeat UA to ensure infection is resolved and blood no longer present *Be sure to let your PCP know that we sent urine cultures from the [facility] so they can follow up to ensure that you area the on the correct antibiotic Call your doctor office and make appointment for 48 hours (2 days from today) ?to follow up and get the results of your urine culture and further treatment Clinical Impressions Clinical Impression: UTI (urinary tract infection) Qualifiers: Urinary tract infection type: site unspecified Hematuria presence: without hematuria Qualified Code(s): N39.0 - Urinary tract infection, site not specified Instructions Patient Instructions: DI for Urinary Tract Infection (UTI), Phenazopyridine, Nitrofurantoin Print Language Print Language: Bahraini Discharge ED Provider: Chanda Croft [facility] [place] HPI General Stated complaint: poss UTI Mode of Arrival: Ambulatory Source of Information: Patient Limitations: No Limitations Time Seen by Provider: 07/29/24 18:04 Description of Symptoms (Recalled from Triage Doc. by RN): PATIENT C/O IRRITATION WITH URINATION X 6 DAYS HEENT Symptoms (Recalled from RN notes): No Resp Symptoms (Recalled from RN notes): No Skin Symptoms (Recalled from RN notes): No MS Symptoms (Recalled from RN notes): No Functional Status (Recalled from RN notes): WNL History of Present Illness Provider Complaint: She states that for the past 2 days she has had low back discomfort, dysuria, urinary frequency, and hesitancy. Related Data Previous Rx's ?Medication ?Instructions ?Recorded nitrofurantoin 100 mg PO Q12H 7 days #14 caps 07/29/24 monohydrate/macrocrystals 100 mg capsule (Macrobid) phenazopyridine 200 mg tablet 200 mg PO Q8H pain 2 days #6 tabs 07/29/24 (Pyridium) ciprofloxacin HCl 500 mg tablet 500 mg PO BID 7 days #14 tabs 07/31/24 (Cipro) Allergies Allergy/AdvReac Type Severity Reaction Status Date / Time No Known Allergies Allergy Verified 11/25/23 14:08 Worker's Comp Is this a Worker's Comp case?: No [facility] Disclaimer: The information contained in this section may have been updated after the patient was seen, as this information can be updated by other users. Medical History (Updated 07/29/24 @ 18:15 by Chanda Croft APRN) Patient left without being seen Family history of diabetes mellitus Surgical History No history of previous surgery Family History Father Diabetes Social History Smoking Status: Light tobacco smoker tobacco type: e-cigarettes alcohol intake: never substance use type: denies use current occupational status: student Travel in the last 8 weeks: None household members: none housing: house Have you lived/traveled outside US in past 30 days?: No Contact w/someone who lives/traveled outside US past 30 days?: No Exposure to someone with infectious disease in past 14 days?: No Do you have a fever (greater than 100.4 F or 38 C)?: No Have you tested positive for COVID-19: No Exposed to someone with COVID-19 in past 14 days?: No Do you have a sore throat?: No Do you have a cough?: No Do you have any weakness?: No Do you have any diarrhea?: No Are you experiencing any unusual bleeding?: No Do you have any muscle aches/pain?: No Do you have any abdominal pain?: No Are you experiencing loss of taste or smell?: No ROS Obtained: Yes All systems reviewed & no additional complaints except as documented Constitutional Constitutional: Reports system reviewed and no additional complaints, except as documented, Denies chills and Denies fever(s) Eyes Eyes: Denies eye discharge ENT Ears, Nose, Mouth, and Throat: Denies dysphagia, Denies sore throat and Denies throat swelling Cardiovascular Cardiovascular: Denies chest pain and Denies dyspnea Respiratory Respiratory: Denies chest congestion, Denies cough and Denies dyspnea Gastrointestinal Gastrointestingal: Denies abdominal pain, constipation, diarrhea, dysphagia, nausea or vomiting Genitourinary Female Genitourinary: Reports as per HPI, Reports dysuria, Reports urinary frequency, Denies urinary incontinence, Reports urinary hesitancy and Reports urinary urgency Musculoskeletal Musculoskeletal: Denies arthralgias and Reports back pain Integumentary/Breasts Skin/Breast: Denies rash Neurologic Neurologic: Denies paresthesias Allergic/Immunologic Allergic/Immunologic: Denies throat swelling Physical Exam General General appearance: alert and in no apparent distress Head Head exam: atraumatic and normocephalic Eye Eye exam: Present normal appearance, PERRL and EOMI ENT ENT exam: Present normal exam, mucous membranes moist, TM's normal bilaterally and normal external ear exam Neck Neck exam: Present normal inspection, full ROM and trachea midline; Absent tenderness, meningismus or lymphadenopathy Chest Chest inspection: Present normal inspection and symmetric chest wall rise; Absent tenderness Respiratory Respiratory exam: Present normal lung sounds bilaterally; Absent respiratory distress, wheezes or stridor Cardiovascular Cardiovascular exam: Present regular rate, normal rhythm and normal heart sounds Abdominal Exam Abdominal exam: Present soft and normal bowel sounds; Absent distention, tenderness, guarding, rebound, rigidity, incision, psoas sign, obturator sign, heel tap sign, Londono's sign, Rovsing's sign or tenderness at McBurney's Point Extremities Exam Extremities exam: Present normal inspection, full ROM and normal capillary refill; Absent tenderness, edema, joint swelling, calf tenderness or cyanosis Back Exam Back exam: Present normal inspection and full ROM; Absent tenderness, CVA tenderness (R) or CVA tenderness (L) Neurological Exam Neurological exam: Present alert, oriented X3 and normal gait Psychiatric Psychiatric exam: Present normal affect and normal mood Skin Skin exam: Present warm, dry, intact and normal color Lymphatic Lymphatic Findings: no adenopathy Medical Decision Making Medical Records Medical records reviewed: No I reviewed the patient's medical records. Screening: Per USPSTF and CDC recommendations, given the prevalence of disease in our region, it is our hospital?s policy to screen for HIV and viral Hepatitis for all patients aged 18 and over and those with ongoing risk factors. Cecil Inquiry Pt receiving controlled substance: No Vital Signs: 07/29/24 17:30 07/29/24 18:16 Temperature 98.3 F 98.3 F Temperature Source Oral Pulse Rate 71 Pulse Rate [Left Brachial] 71 Respiratory Rate 19 19 Blood Pressure 109/74 L Blood Pressure [Left Arm] 109/74 L Blood Pressure Mean [Left Arm] 85 Blood Pressure Source [Left Arm] Automatic Cuff Blood Pressure Position [Left Arm] Sitting 02 Sat by Pulse Oximetry 98 Oxygen Delivery Method Room Air Lab Data Lab results reviewed: Yes I reviewed the patient's lab results. Lab Results 07/29/24 17:27: Urine Color Dark yellow, Urine Appearance Cloudy, Urine pH 6.0, Ur Specific [place] 1.030, Urine Protein Negative, Urine Glucose (UA) Negative, Urine Ketones Trace, Urine Blood Negative, Urine Nitrate Negative, Urine Bilirubin Negative, Urine Urobilinogen 0.2, Ur Leukocyte Esterase Trace Orders (Tests/Meds): ORDERS Category Date Time Status Urine Culture Stat Micro 07/29/24 17:30 Completed
== END 2024-07-29 18:18 | disposition home or self-care (01) ==
PROVIDERS: Emergency Provider Nurse Practitioner; PCP Physician Assistant
DX: N39.0 Urinary tract infection, site not specified (principal)
CPT/HCPCS: 81003; 81025; 87086; 87088; 87186; 99213; G0381

== ENCOUNTER 2024-12-21 09:58 | Outpatient (CLI) | payer MEDICAID, SELFPAY ==
[2024-12-21 12:01] LABS: HCG,Quantitative 142990 mIU/ml (0-5.42)
[2024-12-22 08:13] LABS: Progesterone 11.6 ng/mL (.)
== END 2024-12-21 23:59 | disposition home or self-care (01) ==
LOC: LAB 09:59
PROVIDERS: PCP Physician Assistant; Visit Provider Nurse Practitioner Obstetrics & Gynecology
DX: Z34.01 Encounter for supervision of normal first pregnancy, first trimester (principal); Z3A.00 Weeks of gestation of pregnancy not specified
CPT/HCPCS: 36415; 84144; 84702

== ENCOUNTER 2024-12-30 16:18 | Outpatient (CLI) | payer MEDICAID, SELFPAY ==
--- OUTSIDE RECORDS SUMMARY | 2024-12-30 16:20 | XMS_ITS | Encounter Summary ---
Author Organization Healthcare Address [address] [place] [address] Care Team Providers Care Dentist Private Practice Name Role Phone Pcp, No Primary Care Provider Unavailabl e Encounter Details Date Type Department Care Team (Latest Contact Info) Description 11/06/2024 Travel Social History Tobacco Use Types Packs/Day Years Used Date Smoking Tobacco: Never Assessed Comments Unknown Sex and Gender Information Value Date Recorded Sex Assigned at Not on file Legal Sex Female 8:23 PM EDT Gender Identity Not on file Sexual Orientation Not on file documented as of this encounter Plan of Treatment Not on file documented as of this encounter Visit Diagnoses Not on filedocumented in this encounter Additional Health Concerns Assessment Noted Time A Body Mass Index follow-up plan has been documented for the patient 11/06/2024 3:07 PM EDT documented as of this encounter Care Teams Dentist Private Practice Relationship Specialty Start Date End Date Pcp, [place] [address] PCP - General Family Medicine 11/05/24 documented as of this encounter
--- OUTSIDE RECORDS SUMMARY | 2024-12-30 16:20 | XMS_ITS | Clinical Summary ---
Author Organization Healthcare Address [address] [place] [address] Care Team Providers Care Internal Revenue Agent Name Role Phone Pcp, No Primary Care Provider Unavailabl e Encounters * This document contains information received from the source organization and may not represent a complete record from that organization. Date Type Department Care Team Description 11/12/2024 Travel 11/06/2024 Travel from Last 3 Months Immunizations Immunization Administration Dates Next Due DTaP, Unspecified 07/03/2002, 0,08/02/1999,1997 Hep B, Adolescent or Pediatric 1998 HepB-CpG 11/06/2024 HiB, unspecified 1998 Hib / Hep B 08/02/1999 IPV 07/03/2002,08/02/1999,1998 Influenza, injectable, quadr ivalent, preservative free 03/24/2020 Influenza, recombinant, quad rivalent, injectable, preservative free 06/21/2020 Influenza, seasonal, injecta ble, preservative free 11/06/2024 MMR 07/03/2002,08/02/1999 Tdap 11/06/2024,02/28/2009 Social History Tobacco Use Types Packs/Day Years Used Date Smoking Tobacco: Never Assessed Comments Unknown Sex and Gender Information Value Date Recorded Sex Assigned at Not on file Legal Sex Female 8:23 PM EDT Gender Identity Not on file Sexual Orientation Not on file Plan of Treatment Health Maintenance Due Date Last Done Comments [facility]-Depression Screening 1998 [facility]-HIV Screening 1998 [facility]-Hepatitis C Screening 1998 [facility]-/Child/Adol SDOH Screenings 1998 [facility]-Varicella Vaccines (1 of 2 - 13+ 2-dose series) 2011 HPV Vaccines (1 - 3-dose series) 2013 [facility]- SDOH Screenings 01/29/2016 [facility]-Adult SDOH Screenings 01/29/2016 [facility]-Pap Smear 2019 [id number] Vaccine (1 - 2023-25 season) 2024 [facility]-DTaP,Tdap,and Td Vaccines (7 - Td or Tdap) 11/06/2034 11/06/2024, 02/28/2009, 07/03/2002, Additional history exists [facility]-Zoster Vaccines (1 of 2) 01/29/2048 [facility]-HIB Vaccines Completed 08/02/1999, 1998 [facility]-IPV Vaccines Completed 07/03/2002, 06/2000, 1998 [facility]-Hepatitis B Vaccines Completed 025, 08/02/1999, 1998 [facility]-Influenza Vaccine Completed 11/06/2024 , 06/21/2020, 03/24/2020 [facility]-Hepatitis A Vaccines Aged Out No longer eligible based on patient's age to complete this topic [facility]-Pneumococcal Vaccine: Pediatrics (0 to 5 Years) and At-Risk Patients (6 to 49 Years) Aged Out No longer eligible based on patient's age to complete this topic [facility]-Rotavirus Vaccines Aged Out No lo nger eligible based on patient's age to complete this topic Procedures Procedure Name Priority Date/Time Associated Diagnosis Comments VARICELLA ZOSTER ANTIBODY IGG Routine 11/06/2024 3:03 PM EDT Immunity status testing QUANTIFERON TB GOLD PLUS Routine 11/06/2024 3:03 PM EDT Encounter for screening for respiratory tuberculosis from Last 3 Months Results * Quantiferon TB Gold Plus (11/06/2024 3:03 PM EDT) Quantiferon TB Gold Plus Result Negative Negative 11/07/2024 5:15 PM EDT [facility] TB Nill Value 0.0240 IU/mL 11/07/2024 5:15 PM EDT [facility] TB Antigen 1 0.022 IU/mL 11/07/2024 5:15 PM EDT [facility] TB Antigen 2 0.0346 IU/mL 11/07/2024 5:15 PM EDT [facility] TB Mitogen 9.976 IU/mL 11/07/2024 5:15 PM EDT [facility] Blood Venous blood specimen / Unknown Venipuncture / Unknown 11/06/2024 3:03 PM EDT 11/06/2024 4:55 PM EDT Narrative [facility] - 11/07/2024 5:15 PM EDT Responses to the Mitogen positive control and occasionally to TB antigen can be above the assay range. For calculation purposes: IFN-gamma values > 10 IU/mL are handled as 10 IU/mL. Eva Gutierrez MD LAB BLOOD ORDERABLES Final Re sult Performing Organization Address [facility] de Phone Number [facility] [address] [place] [address] * Varicella Zoster Antibody IgG (11/06/2024 3:03 PM EDT) [facility] Varicella Zoster Antibody IgG Negative Negative 11/06/2024 7:16 PM EDT [facility] Comment: Varicella-zoster IgG Result Interpretation: Negative: No IgG antibody specific to the varicella-zoster virus detected. Patient is presumed not to have had a previous exposure to varicella-zoster through infection or vaccination. Equivocal: Serologic status cannot be determined. Repeat testing in 10-14 days may be helpful. Positive: IgG antibody specific to varicella-zoster detected. This may indicate the patient was exposed to varicella-zoster through infection or vaccination. Blood Venous blood specimen / Unknown Venipuncture / Unknown 11/06/2024 3:03 PM EDT 11/06/2024 4:53 PM EDT Eva Gutierrez MD LAB BLOOD ORDERABLES Final Re sult Performing Organization Address [facility] Co de Phone Number [facility] [address] [place] [address] from Last 3 Months Insurance [employer] Care Teams Internal Revenue Agent Relationship Specialty Start Date End Date Pcp, Afsaneh [address] [place] [address] PCP - General Family Medicine 11/05/24
--- OUTSIDE RECORDS SUMMARY | 2024-12-30 16:20 | XMS_ITS | Encounter Summary ---
Author Organization Healthcare Address [address] [place] [address] Care Team Providers Care Kaiawhina Kura [place] Maori Name Role Phone Pcp, No Primary Care Provider Unavailabl e Encounter Details Date Type Department Care Team (Latest Contact Info) Description 11/12/2024 Travel Social History Tobacco Use Types Packs/Day [...] plan has been documented for the patient 11/12/2024 3:46 PM EDT documented as of this encounter Care Teams Kaiawhina Kura [place] Ma[place] Relationship Specialty Start Date End Date Pcp, [place] [address] PCP - General Family Medicine 11/05/24 documented as of this encounter
== END 2024-12-30 23:59 | disposition home or self-care (01) ==
LOC: LAB.DROPOF 16:18
PROVIDERS: PCP Obstetrics & Gynecology; Visit Provider Obstetrics & Gynecology
DX: Z34.01 Encounter for supervision of normal first pregnancy, first trimester (principal)
CPT/HCPCS: 87491; 87591

== ENCOUNTER 2025-01-28 11:22 | Outpatient (CLI) | payer MEDICAID, SELFPAY ==
--- OUTSIDE RECORDS SUMMARY | 2025-01-28 11:26 | XMS_ITS | Clinical Summary ---
Author Organization Healthcare Address [address] [place] [address] Care Team Providers Care Cylinder Loader Name Role Phone Pcp, No Primary Care [...] Date Last Done Comments [facility]-Depression Screening 1998 [facility]-/Child/Adol SDOH Screenings 1998 [facility]-Varicella Vaccines (1 of 2 - 13+ 2-dose series) 2011 HPV Vaccines (1 - 3-dose series) 2013 [facility]- SDOH Screenings 01/29/2016 [facility]-Adult SDOH Screenings 01/29/2016 [facility]-Pap Smear 2019 [id number] Vaccine ( season) 2024 [facility]-Influenza Vaccine (#1) 03/22/202511/06, 06/21/2020, 03/24/2020 [facility]-DTaP,Tdap,and Td Vaccines (7 - Td or Tdap) 11/06/2034 11/06/2024, 02/28/2009, 07/03/2002, Additional history exists [facility]-Zoster Vaccines (1 of 2) 01/29/2048 [facility]-HIB Vaccines Completed 08/02/1999, 1998 [facility]-IPV Vaccines Completed 07/03/2002, 06/2000, 1998 [facility]-Hepatitis B Vaccines Completed 025, 08/02/1999, 1998 [facility]-Hepatitis A Vaccines Aged Out No longer [...] Result Negative Negative 11/07/2024 5:15 PM EDT [facility] TB Nill Value 0.0240 IU/mL 11/07/2024 5:15 PM EDT [facility] TB Antigen 1 0.022 IU/mL 11/07/2024 5:15 PM EDT [facility] TB Antigen 2 0.0346 IU/mL 11/07/2024 5:15 PM EDT [facility] TB Mitogen 9.976 IU/mL 11/07/2024 5:15 PM EDT [facility] Blood Venous blood specimen / Unknown Venipuncture / Unknown 11/06/2024 3:03 PM EDT 11/06/2024 4:55 PM EDT Narrative [facility] - 11/07/2024 5:15 PM EDT Responses to the Mitogen positive control and occasionally to TB antigen can be above the assay range. For calculation purposes: IFN-gamma values > 10 IU/mL are handled as 10 IU/mL. Eva Gutierrez MD LAB BLOOD ORDERABLES Final Re sult Performing Organization Address [facility] de Phone Number [facility] [address] [place] [address] * Varicella Zoster Antibody IgG (11/06/2024 3:03 PM EDT) [facility] Varicella Zoster Antibody IgG Negative Negative 11/06/2024 7:16 PM EDT [facility] Comment: Varicella-zoster IgG Result Interpretation: Negative: [...] ORDERABLES Final Re sult Performing Organization Address City/[facility]/ZIP Co de Phone Number [facility] [address] [place] [address] from Last 3 Months Insurance [employer] Care Teams Cylinder Loader Relationship Specialty Start Date End Date Pcp, [place] [address] PCP - General Family Medicine 11/05/24
[2025-01-28 11:56] LABS: Hematocrit 37.0 % (37.0-47.0); Hemoglobin 12.5 g/dL (12.2-16.2); Immature Granulocytes % 0.3 %; Mean Corpuscular HGB Conc 33.8 g/dL (31.8-35.4); Mean Corpuscular Hemoglobin 30.0 pg (27.0-31.2); Mean Corpuscular Volume 88.9 fl (81-99); Nucleated Red Blood Cells % 0 %; Platelet Count 297 K/mm3 (142-424); Red Blood Count 4.16 M/mm3 (4.20-5.40); Red Cell Distribution Width-SD 43.5 fL; White Blood Count 8.7 K/mm3 (4.8-10.8)
[2025-01-28 13:12] LABS: Hepatitis C Ab Qual. W/ RFX NEGATIVE (Negative)
[2025-01-29 09:52] LABS: Hepatitis B Surface Antigen Negative (Negative); Rubella Antibodies, IgG <0.90 index (Immune >0.99)
[2025-01-29 10:27] LABS: RPR W/RFX Titers Nonreactive (Nonreactive)
== END 2025-01-28 23:59 | disposition home or self-care (01) ==
LOC: LAB 11:23
PROVIDERS: PCP Physician Assistant; Visit Provider Obstetrics & Gynecology
DX: Z34.01 Encounter for supervision of normal first pregnancy, first trimester (principal)
CPT/HCPCS: 36415; 85025; 86592; 86762; 86803; 86850; 87340; 87389